=== PATIENT | female | born 1975 | race Caucasian/White ===

== ENCOUNTER 2019-11-24 13:52 | Emergency (ER) | payer BC ==
[~2019-11-24] VITALS: Ht 162.6 cm; Wt 77.1 kg
[~2019-11-24 13:52] MED LIST: BACTROBAN CREAM30 G1 TOP; DOXYCYCLINE 10100 MG PO; FISH OIL 1,0001 EAC5; HIBICLENS120 ML TP; IBUPROFEN 600600 M1 PO; IBUPROFEN 800800 MG PO; NORCO 5-325 TA1 EACH PO; SAME200 MG
[2019-11-24] MEDS ORDERED: ASA81BEC PO (14:00)
[2019-11-24] MEDS ORDERED: FISH OIL 1,0001 EAC9 PO (14:00)
[2019-11-24] MEDS ORDERED: VITAMIN D325 MC2 PO (14:01)
[2019-11-24 14:47] LABS: ABSOLUTE BASOPHILS 0.1 thou/uL (0.0-0.2); ABSOLUTE EOSINOPHILS 0.2 thou/uL (0.0-0.7); ABSOLUTE LYMPHOCYTES 3.2 thou/uL (0.8-5.3); ABSOLUTE MONOCYTES 0.5 thou/uL (0.0-1.2); ABSOLUTE NEUTROPHILS 4.1 thou/uL (1.6-8.1); BASOPHILS 1.1 %; EOSINOPHILS 2.7 %; HEMATOCRIT 43.1 % (37.0-47.0); HEMOGLOBIN 15.1 gm/dL (12.0-15.0); LYMPHOCYTES 39.8 %; MCHC 34.9 g/dL (28.0-37.0); MCV 91.7 fL (80.0-100.0); MPV 8.3 fl. (7.2-11.1); NUCLEATED RBCS 0 /100WBC; PLATELET COUNT* 255 thou/uL (150-400); POLYS 50.4 %; RBC 4.71 mil/uL (4.20-5.00); RDW-CV 13.1 % (10.5-14.5); WBC 8.1 thou/uL (4.0-11.0)
[2019-11-24 14:56] LABS: CALCIUM 8.6 mg/dL (8.5-10.1); CREATININE 0.9 mg/dL (0.6-1.3); POTASSIUM 3.6 mmol/L (3.5-5.1)
[2019-11-24 15:00] LABS: ALBUMIN 3.8 g/dL (3.4-5.0); MAGNESIUM 2.2 mg/dL (1.8-2.4); TOTAL BILIRUBIN 0.7 mg/dL (<0.1-1.0); TOTAL PROTEIN 7.8 g/dL (6.4-8.2)
[2019-11-24] MEDS ORDERED: LIDODERM1 EACH TOP (17:04)
[2019-11-24] MEDS ORDERED: IBU600 MG PO (17:04)
[2019-11-24] MEDS ORDERED: DOXYCYCLINE 10100 M2 PO (17:04)
[2019-11-24 17:29] VITALS: BP 141/84
--- NOTE | 2019-11-25 16:22 | EKG ---
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 : 1975 Requested By: Tk Calix Order Number: [id number] MD: Art Masterson Measurements Intervals [place] Rate: 58 P: 42 NC: 149 QRS: 27 QRSD: 91 T: 78 QT: 427 QTc: 420 Interpretive Statements Sinus rhythm Probable left atrial enlargement Low voltage, precordial leads Compared to ECG 07/31/2013 00:06:44 Low QRS voltage now present Electronically Signed On 11-25-2019 16:22:47 CDT by Art Masterson [email or web address] <ELECTRONICALLY SIGNED> By: Art Masterson MD, [facility] 11/25/19 1622 1403 1403 Art Masterson MD, [facility] /EPI
== END 2019-11-24 17:31 | disposition home or self-care (01) ==
LOC: M.ERS 13:52
PROVIDERS: Emergency Medicine Emergency Medical Services
DX: G56.01 Carpal tunnel syndrome, right upper limb (principal); R07.89 Other chest pain; L03.90 Cellulitis, unspecified; W57.XXXA Bitten or stung by nonvenomous insect and other nonvenomous arthropods, initial encounter; Y93.89 Activity, other specified; Y92.89 Other specified places as the place of occurrence of the external cause; Y99.8 Other external cause status

== ENCOUNTER 2019-11-29 02:00 | Emergency (ER) | payer BC ==
[~2019-11-29] VITALS: Ht 165.1 cm; Wt 81.7 kg
[~2019-11-29 02:00] MED LIST changes: +ASA81BEC PO; +DOXYCYCLINE 10100 M2 PO; +FISH OIL 1,0001 EAC9 PO; +IBU600 MG PO; +LIDODERM1 EACH TOP; +VITAMIN D325 MC2 PO
[2019-11-29 02:38] LABS: CALCIUM 8.3 mg/dL (8.5-10.1); CREATININE 1.1 mg/dL (0.6-1.3); POTASSIUM 4.2 mmol/L (3.5-5.1)
[2019-11-29 02:40] LABS: APTT 29.9 Seconds (25.0-31.3); PROTIME 10.3 Seconds (9.20-11.50)
[2019-11-29 02:50] LABS: ABSOLUTE EOSINOPHILS 0.1 thou/uL (0.0-0.7); ABSOLUTE LYMPHOCYTES 3.9 thou/uL (0.8-5.3); ABSOLUTE MONOCYTES 0.9 thou/uL (0.0-1.2); ABSOLUTE NEUTROPHILS 1.6 thou/uL (1.6-8.1); ALBUMIN 3.6 g/dL (3.4-5.0); BASOPHILS 0.7 %; CK-MB MASS 0.5 ng/mL (<0.5-3.6); EOSINOPHILS 1.3 %; HEMATOCRIT 43.4 % (37.0-47.0); LYMPHOCYTES 60.3 %; MAGNESIUM 1.9 mg/dL (1.8-2.4); MCHC 34.6 g/dL (28.0-37.0); MCV 92.3 fL (80.0-100.0); MONOCYTES 13.3 %; MPV 8.6 fl. (7.2-11.1); NUCLEATED RBCS 0 /100WBC; PLATELET COUNT* 199 thou/uL (150-400); POLYS 24.4 %; RDW-CV 13.6 % (10.5-14.5); TOTAL BILIRUBIN 0.5 mg/dL (<0.1-1.0); TOTAL PROTEIN 7.6 g/dL (6.4-8.2); WBC 6.5 thou/uL (4.0-11.0)
[2019-11-29] MEDS ORDERED: ZPAK PO (02:55)
[2019-11-29] MEDS ORDERED: PREDNISONE 20 M20 M1 PO ×2 (02:55→03:37)
[2019-11-29 03:50] VITALS: BP 163/95
--- NOTE | 2019-11-29 10:12 | EKG ---
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 11/29/19 1012 0231 0231 Laith Mckenzie MD, [facility] /EPI
== END 2019-11-29 03:50 | disposition home or self-care (01) ==
LOC: M.ERS 02:00
PROVIDERS: Family Medicine
DX: U07.1 COVID-19 (principal); R07.89 Other chest pain; Z88.8 Allergy status to other drugs, medicaments and biological substances; Z90.89 Acquired absence of other organs; Z98.51 Tubal ligation status

== ENCOUNTER 2019-12-05 11:36 | Emergency (ER) | payer BC ==
[~2019-12-05] VITALS: Ht 162.6 cm; Wt 77.1 kg
[~2019-12-05 11:36] MED LIST changes: +PREDNISONE 20 M20 M1 PO; +ZPAK PO
[2019-12-05 12:34] LABS: ABSOLUTE BASOPHILS 0.1 thou/uL (0.0-0.2); ABSOLUTE EOSINOPHILS 0.1 thou/uL (0.0-0.7); ABSOLUTE MONOCYTES 0.7 thou/uL (0.0-1.2); BASOPHILS 0.9 %; EOSINOPHILS 0.6 %; HEMATOCRIT 44.5 % (37.0-47.0); HEMOGLOBIN 15.7 gm/dL (12.0-15.0); LYMPHOCYTES 44.8 %; MCH 31.8 pg (26.0-34.0); MCHC 35.3 g/dL (28.0-37.0); MCV 90.3 fL (80.0-100.0); MONOCYTES 8.4 %; MPV 7.9 fl. (7.2-11.1); NUCLEATED RBCS 0 /100WBC; PLATELET COUNT* 267 thou/uL (150-400); POLYS 45.3 %; RBC 4.93 mil/uL (4.20-5.00); RDW-CV 13.2 % (10.5-14.5); WBC 8.9 thou/uL (4.0-11.0)
[2019-12-05] MEDS ORDERED: HYDROXYZINE PAM25 M1 PO (12:38)
[2019-12-05] MEDS ORDERED: XANAX 0.5 MG0.5 MG PO (12:38)
[2019-12-05 12:43] LABS: APTT 27.5 Seconds (25.0-31.3); CALCIUM 8.4 mg/dL (8.5-10.1); CREATININE 0.8 mg/dL (0.6-1.3); INR 1.1; POTASSIUM 4.1 mmol/L (3.5-5.1); PROTIME 10.9 Seconds (9.20-11.50)
[2019-12-05 12:55] LABS: ALBUMIN 3.6 g/dL (3.4-5.0); CK-MB MASS 0.5 ng/mL (<0.5-3.6); MAGNESIUM 2.2 mg/dL (1.8-2.4); TOTAL BILIRUBIN 0.9 mg/dL (<0.1-1.0); TOTAL PROTEIN 7.7 g/dL (6.4-8.2)
[2019-12-05 14:06] VITALS: BP 138/88
--- NOTE | 2019-12-05 15:06 | EKG ---
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
== END 2019-12-05 14:08 | disposition home or self-care (01) ==
LOC: M.ERS 11:36
PROVIDERS: Family Medicine
DX: U07.1 COVID-19 (principal); F41.9 Anxiety disorder, unspecified; R07.89 Other chest pain; R00.2 Palpitations; Z79.82 Long term (current) use of aspirin; Z79.899 Other long term (current) drug therapy; Z88.8 Allergy status to other drugs, medicaments and biological substances

== ENCOUNTER 2020-01-27 13:08 | Emergency (ER) | payer OTHER ==
[~2020-01-27] VITALS: Ht 162.6 cm; Wt 77.1 kg
[~2020-01-27 13:08] MED LIST changes: +HYDROXYZINE PAM25 M1 PO; +XANAX 0.5 MG0.5 MG PO
[2020-01-27] MEDS ORDERED: IBUPROFEN 800800 M1 PO (14:41)
[2020-01-27 14:53] VITALS: BP 157/62
== END 2020-01-27 14:54 | disposition home or self-care (01) ==
LOC: M.ERS 13:08
DX: S90.02XA Contusion of left ankle, initial encounter (principal); R60.0 Localized edema; R20.0 Anesthesia of skin; Z90.89 Acquired absence of other organs; Z98.51 Tubal ligation status; Z88.8 Allergy status to other drugs, medicaments and biological substances; X58.XXXA Exposure to other specified factors, initial encounter; Y93.89 Activity, other specified; Y92.89 Other specified places as the place of occurrence of the external cause; Y99.8 Other external cause status

== ENCOUNTER → 2020-07-21 | Outpatient (CLI) | payer OTHER ==
[~2020-07-21] MED LIST changes: +IBUPROFEN 800800 M1 PO
== END ==
LOC: M.RAD 16:00
PROVIDERS: ATTEND Nurse Practitioner Family
DX: Z12.31 Encounter for screening mammogram for malignant neoplasm of breast (principal)

== ENCOUNTER → 2020-08-06 | Outpatient (CLI) | payer OTHER | LOC: M.CT 14:14 | PROVIDERS: ATTEND Nurse Practitioner Family | DX: E78.2 Mixed hyperlipidemia (principal); K21.9 Gastro-esophageal reflux disease without esophagitis ==

== ENCOUNTER → 2020-08-19 | Outpatient (CLI) | payer OTHER | LOC: M.CT 07:25 | PROVIDERS: ATTEND Nurse Practitioner Family | DX: R91.8 Other nonspecific abnormal finding of lung field (principal); I25.10 Atherosclerotic heart disease of native coronary artery without angina pectoris ==

== ENCOUNTER → 2020-09-16 | Outpatient (CLI) | payer OTHER ==
--- NOTE | 2020-09-16 16:45 | CARDNUC ---
[place] [address] CARDIAC NUCLEAR IMAGING REPORT Name: THOMAS MARTINEZ Room: [facility]#: [id number] Admission: 09/16/20 Attend Phys: Jp [place], Discharge: Date of : 71 Date of Service: 09/16/20 1645 Report #: [id number] THIS REPORT FOR: cc: Renata Mahajan Samantha RNP [place], Michael J. MD [facility] ~ APPROVED REPORT Study performed: 09/16/2020 14:49:06 Exam: Nuclear Stress Test Indication: Chest pain, elavated coronary calcium score Patient Location: Out-Patient Stress Tech: Ana Laura Jones Stress Nurse: Heather Dixon RN [place] Tech:DARCI Dobbins Ht: 5 ft 4 in Wt: 181 lbs BSA: 1.88 m2 BMI: 31.06 Medical History Medical History: Hyperlipidemia Medications: atorvastatin, fish oil Allergies: compazine Cardiac Risk Factors: FHX of CAD, Hyperlipidemia, Past Smoker Exercise History: Physically active Stress Test Details Stress Test: Exercise stress testing was performed using a Jermaine protocol. HR Resting HR: 62 bpm Max Heart Rate (APMHR): 173 bpm Max HR Achieved: 158 bpm Target HR (85% APMHR): 147 bpm % of APMHR: 91 Recovery HR: 90 bpm BP Resting BP: 124/88 mmHg Max BP: 215/82 mmHg ECG Resting ECG: Sinus Rhythm Stress ECG: [place] [address] CARDIAC NUCLEAR IMAGING REPORT Name: JUANTHOMAS SHERIFF Room: [facility]#: [id number] Admission: 09/16/20 Attend Phys: Jp Sheffield, Discharge: Date of : 71 Date of Service: 09/16/20 1645 Report #: [id number] Change: None Arrhythmia: None Recovery ECG: Sinus Rhythm Recovery ST Change: None Recovery Arrhythmia: None Clinical Reason for Termination: Dyspnea, Fatigue Exercise duration: 10 min 44 sec Exercise capacity: 11.96 METs Overall Exercise Capacity for Age: Superior Functional Aerobic Impairment 91% The patient tolerated standard Jermaine protocol is without significant cardiac symptoms. Stress ECG Conclusion The baseline EKG shows sinus rhythm without significant ST segment or T wave abnormality. EKGs obtained during and post exercise show sinus rhythm and sinus tachycardia with no significant ST segment or T wave changes when compared to baseline. There were no stress-induced arrhythmias. NM EXAM: Myocardial Perfusion REST/STRESS Imaging Protocol: Rest Tc-99m/Stress Tc-99m 1 day Resting Data Rest SPECT myocardial perfusion imaging was performed in supine position 30 minutes following the intravenous injection of 10.7 mCi of Tc-99m Sestamibi. Time of rest injection: 1315 Date: 09/16/2020 The images were gated to evaluate regional wall motion and calculate left ventricular ejection fraction. Administration Route: IV Exercise Stress At peak stress, the patient was injected intravenously with 28.0mCi of Tc-99m Sestamibi. Administration Route: IV Gated Stress SPECT was performed 30 minutes after stress injection. The images were gated to evaluate regional wall motion and calculate left ventricular ejection fraction. Prone imaging was performed. Study Quality Study: [place] [address] CARDIAC NUCLEAR IMAGING REPORT Name: THOMAS MARTINEZ Room: [facility]#: [id number] Admission: 09/16/20 Attend Phys: Jp Sheffield, Discharge: Date of : 71 Date of Service: 09/16/20 1645 Report #: [id number] Artifact: No artifact Study Data At rest, the left ventricular ejection fraction was 75%.. Post stress, the left ventricular ejection was 77%.. TID = 1.05. Perfusion Perfusion images obtained at rest and post exercise stress show uniform uptake of the radioisotope throughout the myocardium. There were no defects to suggest infarct or ischemia. Wall Motion Normal left ventricular wall motion. Nuclear Conclusion ECG Findings: negative for ischemia Clinical Findings: negative for ischemia Nuclear Findings: negative for ischemia Exercise Capacity: normal Left Ventricular Function: normal Risk Study: low Myocardial perfusion images show no defect to suggest infarct or ischemia. Left ventricular systolic function appears normal on gated studies. This is a low risk study. <Conclusion> The baseline EKG shows sinus rhythm without significant ST segment or T wave abnormality. EKGs obtained during and post exercise show sinus rhythm and sinus tachycardia with no significant ST segment or T wave changes when compared to baseline. There were no stress-induced arrhythmias. <ELECTRONICALLY SIGNED> By: Andriy Munoz MD, [facility] 09/16/20 1645 44 164 Andriy Munoz MD, FACC /INF
== END ==
LOC: M.NUC 12:26
PROVIDERS: ATTEND Internal Medicine
DX: R07.9 Chest pain, unspecified (principal); R93.1 Abnormal findings on diagnostic imaging of heart and coronary circulation; E78.2 Mixed hyperlipidemia

== ENCOUNTER 2021-02-25 07:13 | Emergency (ER) | payer OTHER ==
[~2021-02-25] VITALS: Ht 162.6 cm; Wt 81.7 kg
[2021-02-25 07:20] VITALS: BP 174/72
[2021-02-25] MEDS ORDERED: PRILOSEC OTC20 MG PO (07:34)
[2021-02-25] MEDS ORDERED: LIPITOR 20 MG T20 M1 PO (07:34)
== END 2021-02-25 07:43 | disposition home or self-care (01) ==
LOC: M.ERS 07:13
DX: T50.901A Poisoning by unspecified drugs, medicaments and biological substances, accidental (unintentional), initial encounter (principal); Z90.89 Acquired absence of other organs; Z98.51 Tubal ligation status; Z79.82 Long term (current) use of aspirin; Z79.899 Other long term (current) drug therapy; Z88.8 Allergy status to other drugs, medicaments and biological substances; Y92.89 Other specified places as the place of occurrence of the external cause

== ENCOUNTER → 2021-05-09 | Outpatient (CLI) | payer BC ==
[~2021-05-09] MED LIST changes: +LIPITOR 20 MG T20 M1 PO; +PRILOSEC OTC20 MG PO
== END ==
LOC: M.CT 15:52
PROVIDERS: ATTEND Nurse Practitioner Family
DX: R91.8 Other nonspecific abnormal finding of lung field (principal); Z87.898 Personal history of other specified conditions